=== PATIENT | female | born 1990 | race Two or more races ===

== ENCOUNTER 2016-07-19 13:20 | Observation (INO) | payer SELFPAY | END 2016-07-19 15:00 | disposition home or self-care (01) | DRG 781 | LOC: LDRP 13:20 | PROVIDERS: ADMIT Specialist; ATTEND Specialist | DX: O26.893 Other specified pregnancy related conditions, third trimester (principal); R10.9 Unspecified abdominal pain; Z3A.00 Weeks of gestation of pregnancy not specified | CPT/HCPCS: 59025; 81002; G0378 ==